=== PATIENT | male | born 1995 | race Caucasian/White ===

== ENCOUNTER 2016-12-15 12:33 | Emergency (ER) | payer SELFPAY ==
[2016-12-15 12:39] VITALS: BP 123/90; PULSE 96; RESP 16; TEMP 97.9; O2SAT 94
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
== END 2016-12-15 14:24 | disposition home or self-care (01) ==
DX: S42.021A Displaced fracture of shaft of right clavicle, initial encounter for closed fracture (principal); V18.0XXA Pedal cycle driver injured in noncollision transport accident in nontraffic accident, initial encounter; Y92.410 Unspecified street and highway as the place of occurrence of the external cause; Y99.8 Other external cause status; Y93.89 Activity, other specified
CPT/HCPCS: A4565